=== PATIENT | female | born 1965 | race Caucasian/White ===

== ENCOUNTER 2023-05-21 14:25 | Outpatient (OUT) | payer BC, SELFPAY ==
--- NOTE | 2023-05-21 15:02 | ECG_ITS ---
[facility] Test Date: 2023-05-21 Pat Name: DARIEN CHENEY Department: Room: - Gender: Female Tub Mender: : 1965 Requested By: JOBY GRANT Order Number: [id number] Reading MD: SALVADOR [place] Measurements Intervals [place] Rate: 75 P: 30 RI: 146 QRS: 47 QRSD: 97 T: 40 QT: 374 QTc: 419 Interpretive Statements SINUS RHYTHM No previous ECG available for comparison Electronically Signed On 05-22-2023 6:59:35 EST by SALVADOR LI
[2023-05-21 15:27] LABS: Basophils Absolute Auto 0.1 10^3/uL (0.0-0.1); Basophils Percent Auto 0.9 % (0.2-2.0); Eosinophils Absolute Auto 0.1 10^3/uL (0.0-0.7); Eosinophils Percent Auto 1.7 % (0.9-7.0); Hematocrit 40.6 % (36.0-48.0); Hemoglobin 13.1 g/dL (12.0-16.0); Immature Granulocytes Abs Auto 0.02 10^3/uL (0.00-0.03); Immature Granulocytes Pct Auto 0.3 % (0.0-0.5); Lymphocytes Absolute Auto 2.3 10^3/uL (1.2-3.8); Lymphocytes Percent Auto 29.9 % (20.5-60.0); Mean Corpuscular HGB Conc 32.3 g/dL (29.9-35.2); Mean Corpuscular Hemoglobin 30.8 pg (26.7-34.0); Mean Corpuscular Volume 95.3 fL (81.0-99.0); Mean Platelet Volume 10.8 fL (9.5-13.5); Monocytes Absolute Auto 0.7 10^3/uL (0.3-0.8); Monocytes Percent Auto 9.6 % (1.7-12.0); Neutrophils Absolute Auto 4.4 10^3/uL (1.4-6.5); Neutrophils Percent Auto 57.6 % (43.0-75.0); Platelet Count 258 10^3/uL (150-450); Red Blood Count 4.26 10^6/uL (4.20-5.40); White Blood Count 7.6 10^3/uL (4.0-11.0)
[2023-05-21 15:38] LABS: Anion Gap 7.3; BUN Creatinine Ratio 15.5; Calcium 9.1 mg/dL (8.5-10.1); Carbon Dioxide 30.7 mmol/L (21.0-32.0); Chloride 105 mmol/L (98-107); Estimated GFR (African America >60 (>=60); Estimated GFR (Non-African Ame >60 (>=60); Glucose 101 mg/dL (74-106); Sodium 139 mmol/L (136-145)
== END 2023-05-21 14:26 | disposition home or self-care (01) ==
LOC: PST 14:28
PROVIDERS: PCP Family Medicine; Visit Provider Urology
DX: Z01.810 Encounter for preprocedural cardiovascular examination (principal); Z01.812 Encounter for preprocedural laboratory examination; N35.92 Unspecified urethral stricture, female
CPT/HCPCS: 80048; 85025; 93005

== ENCOUNTER 2023-05-28 07:51 | Day surgery (SDC) | payer BC, SELFPAY ==
[2023-05-21 15:20] VITALS: BP 113/73; PULSE 91; RESP 18; TEMP 36.3; O2SAT 94; BMI 38.5
[2023-05-28 08:09] VITALS: BP 140/82; PULSE 105; RESP 16; TEMP 36; O2SAT 97
[2023-05-28] MEDS: LACTATED RINGER'S SOLUTION 1,000 ML 50 ML IV (08:19)
[2023-05-28 08:20] LABS: HCG Qualitative NEGATIVE (NEGATIVE)
[2023-05-28] MEDS: SCOPOLAMINE 1 MG/3 DAYS TRANSDERM PATCH 1 PATCH TD (09:13)
[2023-05-28] MEDS: CEFAZOLIN SODIUM/DEXTROSE,ISO 2 GM/50 ML PIGGYBACK IV (09:50)
[2023-05-28] MEDS: LIDOCAINE 2% JELLY 10 ML UR (10:08)
[2023-05-28 10:12] VITALS: BP 105/61; PULSE 87; RESP 12; TEMP 36.1; O2SAT 96
--- NOTE | 2023-05-28 10:15 | P.URON_ITS ---
Urology Surgery Operative Note Operative Note Procedure Date: 05/28/23 Time Out Performed: yes Pre-op Diagnosis: Recurrent urethral stenosis and incomplete emptying Post-op Diagnosis: same as pre-op Procedures performed: 1. Urethral dilation with [place] sounds to 32 [place]. 2. Cystoscopy. Anesthesia: MAC and local Primary Surgeon: Tripp Lakhani Complications: None Estimated blood loss (mL): 10 Findings: 1. Severe urethral stenosis. 2. Chronic cystitis. Specimens: None Drains: None Indications for Procedures: This lady gets recurrent urethral stenosis from atrophic vaginitis. She is currently struggling with this problem. She has incomplete emptying and a weak stream. She also gets recurrent urinary infections. She now presents for urethral dilation and cystoscopy. She has signed an informed consent after all risks were explained. Detailed description of Procedure: The patient was brought to the operating room and placed on the operating room table in the supine position. SCDs were placed on the lower extremities and turned on and functioning during the entire case. Timeout was done by all parties in the room. We all agreed upon the patient's identification and the planned procedures for this patient. MAC. anesthesia was then administered. The patient was then repositioned into the modified dorsal lithotomy position. All pressure points were satisfactorily padded. Genitalia were sterilely prepped and draped in usual fashion. 2% lidocaine gel was passed per urethra. I then started by using [place] sounds and dilating her from 18 [place] up to 32 [place]. It was difficult to get the 18 [place] sound in her urethra. Her urethra bled from the dilation. I then passed a 22 [place] Olympus cystoscope per urethra and into the bladder. Panendoscopy in the bladder showed no evidence of any bladder tumors stones or foreign bodies. She did have mild chronic cystitis over her mucosa. There was also inflammatory debris diffusely within the bladder. The bladder was then drained of its contents and the scope was then removed. She was then transferred to a rfults bed and wheeled to PACU in stable condition. She will be discharged to home later today with a prescription for Macrobid 100 mg daily #60. She will continue her 3 times a week estradiol vaginal cream.
[2023-05-28 10:27] VITALS: BP 106/59; PULSE 81; RESP 14; O2SAT 96
[2023-05-28 10:51] VITALS: BP 106/59; PULSE 85; RESP 20; O2SAT 96
== END 2023-05-28 10:55 | disposition home or self-care (01) ==
PROVIDERS: Visit Provider Urology
PROC: (CPT 910; principal; 2023-05-28 09:05)
DX: N35.92 Unspecified urethral stricture, female (principal); R33.9 Retention of urine, unspecified; Z87.891 Personal history of nicotine dependence; R35.0 Frequency of micturition; Z85.820 Personal history of malignant melanoma of skin
CPT/HCPCS: 52281; 36415; 84703; J1094; J2704